=== PATIENT | female | born 1985 | race Caucasian/White ===

== ENCOUNTER 2021-03-25 12:58 | Day surgery (SDC) | payer OTHER ==
[~2021-03-25] VITALS: Ht 154.9 cm; Wt 61.0 kg
[~2021-03-25 12:58] MED LIST: SODIUM CHLORIDE 0.9% 100 ML ONE; VASOPRESSIN 20 UNIT/ML, 1ML ONE
[2021-03-25 14:00] VITALS: BP 127/87
[2021-03-25] MEDS ORDERED: LACTATED RINGERS 1,000 ML IV SCH (14:00)
[2021-03-25] MEDS ORDERED: CHLORHEXIDINE 15 ML UDC PO ONE (14:00)
[2021-03-25] MEDS ORDERED: [UNRECOGNIZED DRUG - REMARK] (14:00)
[2021-03-25 14:28] LABS: BASOPHILS % (AUTO) 1 % (0-1); EOSINOPHILS % (AUTO) 1 % (1-7); LYMPHOCYTES % (AUTO) 30 % (22-44); MEAN CORPUSCULAR HEMOGLOBIN 32.1 pg (27.0-34.8); MEAN PLATELET VOLUME 7.6 fL (7.4-10.4); MONOCYTES % (AUTO) 7 % (2-9); NEUTROPHILS % (AUTO) 61 % (42-75); PLATELET COUNT 263 x10^3/uL (130-400); RED BLOOD COUNT 4.16 x10^6/uL (3.82-5.3); RED CELL DISTRIBUTION WIDTH 13.4 % (9.6-15.2)
[2021-03-25 14:41] LABS: ANION GAP 6 mmol/L (5-15); CALCIUM 8.8 mg/dL (8.5-10.1); CHLORIDE 113 mmol/L (98-107)
[2021-03-25 14:46] LABS: CREATININE 0.73 mg/dL (0.55-1.02)
[2021-03-25] MEDS ORDERED: MIDAZOLAM 1 MG/ML, 2ML ONE (15:05)
[2021-03-25] MEDS ORDERED: FENTANYL PF 100 MCG/2ML ONE ×2 (15:05→16:48)
[2021-03-25] MEDS ORDERED: PROPOFOL 100 ML ONE (15:12)
[2021-03-25] MEDS ORDERED: DEXAMETHASONE 4 MG/ML, 1ML ONE (15:14)
[2021-03-25] MEDS ORDERED: CEFAZOLIN 1,000 MG ONE (15:14)
[2021-03-25] MEDS ORDERED: ONDANSETRON 2MG/ML, 2ML ONE (15:14)
[2021-03-25] MEDS ORDERED: PROPOFOL 10 MG/ML, 20ML ONE (15:14)
[2021-03-25] MEDS ORDERED: PROMETHAZINE 25 MG/ML, 1ML IVPush PRN (16:00)
[2021-03-25] MEDS ORDERED: OXYcodone 5 MG/5 ML ORAL.SOL UDC PO PRN (16:00)
[2021-03-25] MEDS ORDERED: FENTANYL PF 100 MCG/2ML IV PRN (16:00)
[2021-03-25] MEDS ORDERED: ACETAMINOPHEN 325 MG TABLET PO PRN (16:00)
[2021-03-25] MEDS ORDERED: HYDROmorphone 1 MG/ML, 1ML INJ IVPush PRN (16:00)
[2021-03-25] MEDS ORDERED: ONDANSETRON 2MG/ML, 2ML IVPush PRN (16:00)
[2021-03-25] MEDS ORDERED: PROMETHAZINE 25 MG SUPP PR PRN (16:00)
[2021-03-25] MEDS ORDERED: MEPERIDINE/PF 50 MG/ML ONE (16:08)
[2021-03-25] MEDS ORDERED: KETOROLAC 30 MG/1 ML ONE (16:13)
[2021-03-25] MEDS ORDERED: ACETAMINOPHEN 650 MG/20.3 ML UDC ONE (16:48)
== END 2021-03-25 18:30 | disposition home or self-care (01) ==
LOC: OUT 12:58
PROVIDERS: ATTEND Obstetrics & Gynecology
DX: N92.0 Excessive and frequent menstruation with regular cycle (principal); N99.71 Accidental puncture and laceration of a genitourinary system organ or structure during a genitourinary system procedure; Z20.822 Contact with and (suspected) exposure to COVID-19; Z79.899 Other long term (current) drug therapy; Z98.890 Other specified postprocedural states; Z80.3 Family history of malignant neoplasm of breast; Z83.3 Family history of diabetes mellitus; Z82.49 Family history of ischemic heart disease and other diseases of the circulatory system; Y83.8 Other surgical procedures as the cause of abnormal reaction of the patient, or of later complication, without mention of misadventure at the time of the procedure
CPT/HCPCS: 36415; 58563; 80048; 84702; 85025; J1100; J1885; J2175; J2250; J2405; J2704; J3010; J7120; U0003; U0005; J0690